=== PATIENT | female | born 1975 | race Caucasian/White ===

== ENCOUNTER 2018-08-24 09:51 | Emergency (ER) | payer OTHER ==
[2018-08-24 09:51] VITALS: BMI 37.3
[2018-08-24 10:06] VITALS: RESP 18; O2SAT 99
--- NOTE | 2018-08-24 10:20 | C.PDOC ---
History Of Present Illness 43 year old female presents to the ED for evaluation of left shoulder and left upper back pain which began 4 days ago. Patient states her symptoms began after she tried lifting a heavy chemical-filled container at work four days ago. She denies any chemical spills or direct contact with chemicals. Patient states her pain feels like a muscular ache that is worse with movement of her left shoulder. Patient has not taken anything for pain. Patient denies chest pain, chest pain radiating into arm, left elbow/wrist/hand pain, shortness of breath, neck pain, nausea, vomiting, headache, falls. Time Seen by Provider: 08/24/18 10:15 Chief Complaint (Nursing): Upper Extremity Problem/Injury History Per: Patient History/Exam Limitations: no limitations Onset/Duration Of Symptoms: Days (4) Current Symptoms Are (Timing): Still Present Quality: "Pain" Exacerbating Factor(s): Movement Additional History Per: Patient Past Medical History Reviewed: Historical Data, Nursing Documentation, Vital Signs Vital Signs: Last Vital Signs Temp 98 F 08/24/18 10:01 Pulse 64 08/24/18 10:01 Resp 18 08/24/18 10:01 BP 147/86 08/24/18 10:01 Pulse Ox 99 08/24/18 10:01 - Medical History PMH: Migraine Surgical History: No Surg Hx Family History: States: Unknown Family Hx - Social History Hx Alcohol Use: No Hx Substance Use: No - Immunization History Hx Tetanus Toxoid Vaccination: No Hx Influenza Vaccination: Yes Hx Pneumococcal Vaccination: No Review Of Systems Cardiovascular: Negative for: Chest Pain Gastrointestinal: Negative for: Nausea, Vomiting Musculoskeletal: Positive for: Shoulder Pain (left), Back Pain (left, upper ). Negative for: Neck Pain, Arm Pain Neurological: Negative for: Headache Physical Exam - Physical Exam Appears: Non-toxic, No Acute Distress Skin: Normal Color, Warm, Dry Head: Atraumatic, Normacephalic Eye(s): bilateral: Normal Inspection Oral Mucosa: Moist Neck: Normal ROM, No Midline Cervical Tenderness, No Paracervical Tenderness, Supple Chest: Symmetrical, No Deformity, No Tenderness Cardiovascular: Rhythm Regular, No Murmur Respiratory: Normal Breath Sounds, No Rales, No Rhonchi, No Wheezing Extremity: Normal ROM (left upper extremity ), Tenderness (point tenderness to left shoulder on palpation ), Capillary Refill (less than 2 seconds ), No Deformity, No Swelling Neurological/Psych: Oriented x3, Normal Speech, Normal Cognition, Normal Motor, Normal Sensation Gait: Steady ED Course And Treatment O2 Sat by Pulse Oximetry: 99 (on RA) Pulse Ox Interpretation: Normal - Other Rad CXR X-Ray: Viewed By Me, Read By Radiologist Interpretation: HISTORY: L shoulder pain after lifting. COMPARISON: None available. TECHNIQUE: Chest, one view. FINDINGS: Examination limited by habitus. LUNGS: No focal consolidation. Please note that chest x-ray has limited sensitivity for the detection of pulmonary masses. PLEURA: No significant pleural effusion identified. No definite pneumothorax . CARDIOVASCULAR: Heart size appears within normal limits. No significant atherosclerotic calcification present. OSSEOUS STRUCTURES: No acute osseous abnormality identified. VISUALIZED UPPER ABDOMEN: Unremarkable. OTHER FINDINGS: None. IMPRESSION: No focal consolidation. Medical Decision Making Medical Decision Making: Impression: 43 year old female with left shoulder and left upper back pain Differential diagnoses include but are not limited to: * musculoskeletal pain * patient denies chest pain, or chest pain radiating into arm so symptoms are unlikely of cardiologic etiology Plan: * CXR * left shoulder XR * Tylenol PO * reassess and disposition Progress: Left shoulder XR, CXR ordered and reviewed, both resulted negative. Tylenol PO given. On reassessment, patient is resting comfortably, showing no signs of distress and reports an improvement in her pain. Patient is stable for discharge. She is advised to follow up with her PMD/clinic within 1-2 days for further evaluation. Advised to return to the ED if symptoms return or worsen. Disposition - Disposition Disposition: HOME/ ROUTINE Disposition Time: 11:52 Condition: GOOD Forms: [facility] (Gambian) - Clinical Impression Clinical Impression: Muscular pain - Scribe Statement The provider has reviewed the documentation as recorded by the Scribe (Lucy aVlle) Provider Attestation: All medical record entries made by the Scribe were at my direction and personally dictated by me. I have reviewed the chart and agree that the record accurately reflects my personal performance of the history, physical exam, medical decision making, and the department course for this patient. I have also personally directed, reviewed, and agree with the discharge instructions and disposition.
--- NOTE | 2018-08-24 11:44 | RAD ---
HISTORY: L shoulder pain after lifting COMPARISON: None available. TECHNIQUE: Chest, one view. FINDINGS: Examination limited by habitus. LUNGS: No focal consolidation. Please note that chest x-ray has limited sensitivity for the detection of pulmonary masses. PLEURA: No significant pleural effusion identified. No definite pneumothorax . CARDIOVASCULAR: Heart size appears within normal limits. No significant atherosclerotic calcification present. OSSEOUS STRUCTURES: No acute osseous abnormality identified. VISUALIZED UPPER ABDOMEN: Unremarkable. OTHER FINDINGS: None. IMPRESSION: No focal consolidation.
--- NOTE | 2018-08-24 11:53 | RAD ---
PROCEDURE: Radiographs of the Left Shoulder HISTORY: L shoulder pain after lifting COMPARISON: Left shoulder radiograph performed 04/17/16 FINDINGS: BONES: No acute displaced fracture. The distal clavicle and underlying ribs appear intact. JOINTS: No acute dislocation. SOFT TISSUES: Soft tissues appear unremarkable. No evidence of radiopaque foreign body. Partially imaged cardiomegaly. IMPRESSION: No acute displaced fracture or dislocation evident. If symptoms persist or if there is continued clinical concern, x-ray follow-up in 7-10 days should be considered.
[2018-08-24 12:04] VITALS: BP 133/76; PULSE 62; TEMP 97.9
== END 2018-08-24 12:00 | disposition home or self-care (01) ==
LOC: C.ER 09:51
DX: M79.18 Myalgia, other site (principal)